=== PATIENT | female | born 1955 | race Caucasian/White ===

== ENCOUNTER 2019-07-17 11:33 | Outpatient (CLI) | payer BC ==
--- NOTE | 2019-07-18 07:30 | RAD ---
CHEST 2 VIEWS: Date: 07/17/19 No prior films available for comparison. Median sternotomy sutures clara prior surgery. The heart is mildly enlarged, but there is no congestiv e change. I see no significant amount of pleural fluid. No focal pulmonary infiltrate seen. At most, some of the basilar markings are marginally prominent, which may or may not be significant or acute. IMPRESSION: Mild cardiomegaly. Minimal prominence of basilar markings of questionable significance. POS: [facility]
== END 2019-07-17 11:34 | disposition home or self-care (01) ==
LOC: BURRAD 11:33
PROVIDERS: ATTEND Nurse Practitioner Family
DX: R06.02 Shortness of breath (principal); Z87.09 Personal history of other diseases of the respiratory system; I51.7 Cardiomegaly
CPT/HCPCS: 71046

== ENCOUNTER 2019-09-05 08:56 | Outpatient (CLI) | payer BC ==
--- NOTE | 2019-09-05 13:05 | RAD ---
CHEST 2 VIEWS: DATE: 09/05/2019. COMPARISON: Comparison is made with an 07/17/2019 study. FINDINGS: The cardiac size is stable. There is no congestive change or pleural effusion. 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 IMPRESSION: No definite acute findings. POS: [facility]
--- NOTE | 2019-09-06 07:33 | ULT ---
ABDOMINAL ULTRASOUND: DATE: 09/05/2019. FINDINGS: Ultrasonography of the abdomen was performed for evaluation of left upper quadrant pain. The liver is large measuring about 19 cm in length. Internally, I see no signs of mass or dilated du cts. Portal venous flow is towards the liver. Gallbladder has been previously removed. The remaini ng common bile duct is a normal 5 mm wide. The spleen is normal in size measuring about 12 cm in le ngth. A few calcified granulomas are suggested within it. The pancreas and aorta were unremarkable in appearance, as was the inferior vena cava. The right kidney is 9.6 cm long and contains a 1.2 cm cyst of no real concern. The left kidney is 11 .3 cm long and appears normal. There were no findings here to suggest the cause of pain. IMPRESSION: Mild hepatomegaly. No cause for left upper quadrant pain appreciated on this exam. POS: [facility]
== END 2019-09-05 08:57 | disposition home or self-care (01) ==
LOC: BURULT 08:56
PROVIDERS: ATTEND Nurse Practitioner Family
DX: R05 Cough (principal); R10.12 Left upper quadrant pain; R16.0 Hepatomegaly, not elsewhere classified
CPT/HCPCS: 71046; 76700

== ENCOUNTER 2019-10-23 09:36 | Outpatient (CLI) | payer BC ==
--- NOTE | 2019-10-23 13:30 | CT ---
CT OF THE CHEST AND ABDOMEN WITHOUT CONTRAST: DATE: 10/23/2019. FINDINGS: Spiral CT of the chest and abdomen was performed as ordered for evaluation of epigastric pain. Axial slices were acquired. A small amount of oral contrast was given. Coronal and sagittal and sagittal reconstructions were then done. Comparison is made with a 05/23/2010 CT exam. The lung bases show some minimal scarring, but no acute infiltrate. Arteriosclerotic change is prese nt in the aorta and in both the right and left coronary circulations. There is no pericardial effusi on. No mediastinal mass or adenopathy was seen. There might be some mild thickening of the distal e sophagus; however, as it has collapsed, this was an unreliable finding. The lungs show no acute infi ltrate or effusion. IMPRESSION: 1. No acute thoracic findings. 2. Arteriosclerotic cardiovascular disease, including the coronary vessels. 3. Equivocal thickening of the lower esophagus. Esophagitis might be possible, but this finding is equivocal. A noncontrast CT of the abdomen showed a normal-appearing liver, spleen, and pancreas. The gallbladd er has been surgically removed since the last scan. There is a small 1.4 cm low-density nodule in th e left adrenal gland that has fat density within it. This means it is virtually certain to be an anshu noma and probably needs no further workup. The kidneys showed a small 1.6 cm exophytic rounded densi ty from the right kidney that is almost certainly a cyst. It has water CT numbers and it was present , though just barely smaller on the 2010 study. The aorta is densely calcified. The bowel shows no distention to suggest obstruction. There is no free air or free fluid. There is some question of so me slight mucosal thickening in the pyloric region and through the 2nd parts of the duodenum. IMPRESSION: 1. Equivocal thickening just beyond the gastric outlet. Duodenitis is not excluded. 2. A 1.4 cm left adrenal adenoma. Further workup probably not needed. POS: [facility]
== END 2019-10-23 09:37 | disposition home or self-care (01) ==
LOC: BURCT 09:36
PROVIDERS: ATTEND Nurse Practitioner Family
DX: R10.13 Epigastric pain (principal); I25.10 Atherosclerotic heart disease of native coronary artery without angina pectoris; D35.02 Benign neoplasm of left adrenal gland; K22.8 Other specified diseases of esophagus
CPT/HCPCS: 71250; 74150

== ENCOUNTER 2020-01-08 15:09 | Outpatient (CLI) | payer BC ==
--- NOTE | 2020-01-08 15:55 | RAD ---
LEFT SHOULDER THREE VIEWS: History: Acute left shoulder pain. FINDINGS: The bones are demineralized. Subacromial spur is noted. There are no signs of fracture. Vascular calc ifications are seen. IMPRESSION: Mild arthritic changes of the shoulder. Fairly prominent subacromial spur is present. POS: [facility]
== END 2020-01-08 15:10 | disposition home or self-care (01) ==
LOC: BURRAD 15:09
PROVIDERS: ATTEND Nurse Practitioner Family
DX: M25.512 Pain in left shoulder (principal); M19.012 Primary osteoarthritis, left shoulder; M89.8X1 Other specified disorders of bone, shoulder